=== PATIENT | female | born 1985 | race Caucasian/White ===

== ENCOUNTER 2018-05-06 09:08 | Inpatient (IN) | payer BC ==
[~2018-05-06] VITALS: Ht 160 cm; Wt 57.6 kg
--- NOTE | ~2018-05-06 | O ---
[facility] [place] [address] OPERATIVE REPORT Name: JOSE HAAS Room #: 427-P ADM IN M.R.#: [id number] Admission: 05/06/18 Attend Phys: Dm Levi MD Discharge: Date of : 89 Report #: [id number] THIS REPORT FOR: //name// CC: FAM enid Dustin Purcell Dm Levi DATE OF SERVICE: 05/06/2018 PREOPERATIVE DIAGNOSIS: Left knee surgical site infection, status post partial quad tendon repair. POSTOPERATIVE DIAGNOSIS: Left knee surgical site infection, status post partial quad tendon repair. PROCEDURE: Irrigation and debridement, left knee surgical site with removal of hardware and suture from the quad tendon repair. SURGEON: Dm Levi MD. POLICE CLERK: Marcelle Chand PA-C. ANESTHESIA: LMA. TOURNIQUET TIME: 16 minutes. ESTIMATED BLOOD LOSS: 10 mL. SPECIMENS: Cultures were sent of the superficial knee wound as well as the synovial fluid of the left knee. CONDITION UPON LEAVING THE OPERATING ROOM: Stable. INDICATIONS FOR PROCEDURE: The patient is a 32-year-old female who had a traumatic laceration to her left knee approximately 5 weeks ago. This initially underwent an irrigation, debridement and closure at an outside hospital. She presented to my office with an MRI scan showing a partial quadriceps tendon laceration and after discussion with her, we took her to the operating room about 2 weeks ago for a surgical repair. This was performed using a Healicoil suture anchor. She is about 2 weeks out from surgery and has had persistent drainage and redness around her incision and it was felt that she had an infection. After discussion with her, she elected for I and D of her left knee. DESCRIPTION OF PROCEDURE: Risks, benefits, alternatives, complications were discussed in detail with the patient including but not limited to risk of anesthesia, risk of damage to nerves, arteries, blood vessels, risk for [facility] [address] [place] [address] OPERATIVE REPORT Name: JOSE HAAS Room #: 427-P ADM IN M.R.#: [id number] Admission: 05/06/18 Attend Phys: Dm Levi MD Discharge: Date of : 89 Report #: [id number] infection, bleeding, risk for continued knee pain, need for reoperation. Informed consent was obtained from the patient. Left knee was appropriately marked in the preoperative holding area. She was brought to the operating room and placed in supine position on operating room table. LMA anesthesia was induced without complication. Tourniquet was placed on the left thigh. Left lower extremity was prepped and draped in normal sterile fashion. Timeout was performed properly identifying the patient and procedure as well as the instrumentation. All in the operating room were in agreement. Left lower extremity was elevated. Tourniquet was inflated. Tourniquet time was 16 minutes. Previous incision was then opened with a 10 blade. There was purulent drainage from this and in the deep tissues, cultures of this were taken and sent. After opening of the wound, the repair of the quadriceps tendon was assessed and noted that the repair had failed, so the sutures were removed from the quadriceps tendon and the suture anchor that was in the superior medial patella was removed. This left a deficiency of the medial quadriceps directly attached to the vastus medialis obliquus. Given that this was infected, it was decided not to repair this defect at this time in order to gain control of the wound, but not placing any braided suture or other nidus for infection in the tissues. The knee was cycled through range of motion and no synovial fluid came from the tear in the quadriceps tendon. The knee was aspirated from a separate area and the synovial fluid appeared normal to visual inspection. This was sent for cultures also. After this, the wound was thoroughly irrigated with normal saline. A deep drain was placed in the adipose layer. The skin was closed with 2-0 nylon. Soft dressing of Adaptic, 4 x 4, Webril, Rodger wrap were applied. The patient tolerated this procedure well and went to the recovery room under the care of anesthesia postoperatively. <ELECTRONICALLY SIGNED> By: Dm Levi MD 05/08/18 1306 1642 1737 Dm Levi MD /nt
[~2018-05-06 09:08] MED LIST: ADDERALL 20 MG20 M1 PO; BACTRIM DS TAB1 EACH PO; CLONAZEPAM 1 MG1 M1 PO; PROBIOTIC1 EAC1 PO; TRAMADOL 50 MG50 MG PO
[2018-05-06 14:01] VITALS: BP 130/69
[2018-05-06 15:32] LABS: HEMOGLOBIN 11.5 gm/dL (12.0-15.0); MCH 31.6 pg (26.0-34.0); MCV 90.2 fL (80.0-100.0); RBC 3.66 mil/uL (4.20-5.00); RDW 12.7 % (10.5-14.5); WBC 5.7 thou/uL (4.0-11.0)
[2018-05-06 17:31] VITALS: BP 133/84
[2018-05-06 19:28] VITALS: BP 112/8
[2018-05-07 05:01] VITALS: BP 96/44
[2018-05-07 07:30] VITALS: BP 102/65
[2018-05-07 07:39] VITALS: BP 102/65
[2018-05-07] MEDS ORDERED: PERCOCET PO (12:40)
[2018-05-07 16:59] VITALS: BP 115/57
[2018-05-07 20:30] VITALS: BP 120/74
[2018-05-08 10:11] VITALS: BP 105/70
[2018-05-08] MEDS ORDERED: NEURONTIN 300300 M1 PO ×2 (10:39→10:41)
[2018-05-08 10:51] VITALS: BP 120/74
[2018-05-08 11:15] VITALS: BP 120/74
== END 2018-05-08 13:45 | disposition home health service (06) | DRG 487 ==
LOC: PRE 09:08 → TBA 13:01 → PRE 14:13 → 4E 17:19
PROVIDERS: Orthopaedic Surgery
DX: T84.54XA Infection and inflammatory reaction due to internal left knee prosthesis, initial encounter (principal); S76.119A Strain of unspecified quadriceps muscle, fascia and tendon, initial encounter; Y83.8 Other surgical procedures as the cause of abnormal reaction of the patient, or of later complication, without mention of misadventure at the time of the procedure; X58.XXXA Exposure to other specified factors, initial encounter; Z88.8 Allergy status to other drugs, medicaments and biological substances; Y93.89 Activity, other specified; Y92.89 Other specified places as the place of occurrence of the external cause; Y99.8 Other external cause status; Z23 Encounter for immunization
CPT/HCPCS: 10783; 27000; 50010; 50101; 50386; 53078; 56525; 57092; 57103; 62110; 62900; 64042; 70005

== ENCOUNTER 2018-07-10 05:36 | Inpatient (IN) | payer BC ==
[~2018-07-10] VITALS: Ht 160 cm; Wt 58.1 kg
--- NOTE | ~2018-07-10 | O ---
[facility] [place] [address] OPERATIVE REPORT Name: JOSE HAAS Room #: 421-P [facility] IN M.R.#: [id number] Admission: 07/10/18 Attend Phys: Dm Levi MD Discharge: 07/13/18 Date of : 89 Report #: [id number] THIS REPORT FOR: //name// CC: Dustin Levi DATE OF SERVICE: 07/10/2018 PREOPERATIVE DIAGNOSIS: Left knee post-surgical abscess. POSTOPERATIVE DIAGNOSIS: Left knee post-surgical abscess. PROCEDURES: 1. Open I and D, left knee soft tissue abscess. 2. Arthroscopic I and D, left knee joint. SURGEON: Dm Levi MD. MARKETING EXECUTIVE: None. ANESTHESIA: LMA. TOURNIQUET TIME: 35 minutes. COMPLICATIONS: None. SPECIMENS: Cultures of the knee joint as well as the medial and lateral soft tissue abscess were sent. ESTIMATED BLOOD LOSS: 10 mL. SPECIMENS: None. CONDITION UPON LEAVING THE OPERATING ROOM: Stable. INDICATIONS FOR PROCEDURE: The patient is a 33-year-old female who earlier this fall, sustained a traumatic laceration to her left knee. She had undergone a debridement of this initially. She had a partial quadriceps tear and underwent a second procedure for quadriceps repair. She ended up developing an infection in this area and irrigation and debridement of the area was performed. She has gone on to heal her incision; however, in the past week or so, she developed swelling on her medial and lateral knee with increased pain and she was seen in the office. The soft tissue was aspirated and found to be purulent. MRI scan of the knee was performed shown to have a lateral as well as medial soft tissue abscess. After discussion with her, she elected for I and D of her knee. [address] [address] OPERATIVE REPORT Name: JOSE HAAS Room #: 421-P [facility] IN M.R.#: [id number] Admission: 07/10/18 Attend Phys: Dm Levi MD Discharge: 07/13/18 Date of : 89 Report #: [id number] DESCRIPTION OF PROCEDURE: Risks, benefits, alternatives, complications were discussed in detail with the patient including but not limited to risk of anesthesia, risk of damage to nerves, arteries, blood vessels, risk for continued infection, bleeding and need for reoperation. Informed consent was obtained from the patient. Left knee was appropriately marked in the preoperative holding area. IV antibiotics were held prior to surgery in order to get surgical cultures. She was brought to the operating room and placed in supine position on the operating room table. LMA anesthesia was induced without complication. Tourniquet was placed on the left thigh. Left lower extremity was prepped and draped in normal sterile fashion. Timeout was performed properly identifying the patient and procedure as well as the instrumentation. All in the operating room were in agreement. It was decided to do an arthroscopic debridement of the joint itself in order to determine if there was joint involvement with this injection. A standard anterolateral portal was established with an 11 blade through the skin. Arthroscope was introduced into the patellofemoral compartment. There was minimal fluid in the knee joint and what minimal fluid there was, this was cultured. The knee was then irrigated with normal saline and visualization of the patellofemoral, medial and lateral compartments as well as anterior cruciate ligament was performed. There appeared to be normal intraarticular knee structures without hyperemia or purulence in the joint itself. It was felt that the knee joint did not communicate with the soft tissue abscesses around the knee itself. After arthroscopic irrigation of the knee, arthroscopy was terminated and the previous scar from the laceration was excised with a 10 blade and dissection was taken down to the quadriceps. No abscess in this area was found. The interval between the adipose layer and the fascial layer was then dissected with a #15 blade and upon entering the lateral soft tissue as well as the medial soft tissue, two separate abscesses were identified. These were drained. Cultures of each were taken separately. This was then thoroughly irrigated with normal saline under pulse lavage. A deep drain was placed in this potential space and the skin was closed with 2-0 nylon. Soft dressing of Xeroform, 4 x 4's, Webril, Rodger wrap were applied. The patient tolerated this procedure well and went to recovery room under care of anesthesia postoperatively. <ELECTRONICALLY SIGNED> By: Dm Levi MD 07/15/18 1653 [id number] 1759 Dm Levi MD /nt
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
[~2018-07-10 05:36] MED LIST changes: +NEURONTIN 300300 M1 PO; +PERCOCET PO
[2018-07-10 14:48] VITALS: BP 120/70
[2018-07-10 20:05] VITALS: BP 118/64
[2018-07-11 04:59] VITALS: BP 8/52
[2018-07-11 07:05] VITALS: BP 99/61
[2018-07-11 13:25] LABS: ABSOLUTE NEUTROPHILS 5.6 thou/uL (1.4-8.2); BASOPHILS 0.9 % (0.0-2.0); EOSINOPHILS 0.3 % (0.0-3.0); HEMATOCRIT 36.1 % (37.0-47.0); HEMOGLOBIN 12.3 gm/dL (12.0-15.0); LYMPHOCYTES 34.9 % (24.0-44.0); MCH 30.9 pg (26.0-34.0); MCHC 34.1 g/dL (28.0-37.0); MCV 90.8 fL (80.0-100.0); MONOCYTES 7.1 % (1.0-8.0); PLATELET COUNT 296 thou/uL (150-400); POLYS 56.8 % (36.0-66.0); RBC 3.97 mil/uL (4.20-5.00); RDW 12.4 % (10.5-14.5); WBC 9.9 thou/uL (4.0-11.0)
[2018-07-11 13:39] LABS: ALBUMIN 3.3 g/dL (3.4-5.0); CALCIUM 8.4 mg/dL (8.5-10.1); CREATININE 0.8 mg/dL (0.6-1.0); POTASSIUM 3.8 mmol/L (3.5-5.1); TOTAL BILIRUBIN 0.2 mg/dL (<0.1-1.0); TOTAL PROTEIN 6.8 g/dL (6.4-8.2)
[2018-07-11 20:30] VITALS: BP 101/66
[2018-07-12 19:22] VITALS: BP 105/60
[2018-07-13 05:24] VITALS: BP 103/57
[2018-07-13 07:40] VITALS: BP 91/60
[2018-07-13 08:41] VITALS: BP 103/57
[2018-07-13] MEDS ORDERED: HYDROCODON-ACE1 EAC5 PO (08:41)
[2018-07-13 08:42] VITALS: BP 103/57
== END 2018-07-13 10:11 | disposition home or self-care (01) | DRG 501 ==
LOC: TBA 05:36 → OR 16:09 → EDSTATUS 16:59 → PRE 17:00 → 4E 18:47
PROVIDERS: Specialist
PROC: 05HY33Z Insertion of Infusion Device into Upper Vein, Percutaneous Approach (ICD-10-PCS; principal; 2018-07-10)
PROC: 0J9P0ZZ Drainage of Left Lower Leg Subcutaneous Tissue and Fascia, Open Approach (ICD-10-PCS; principal; 2018-07-10)
PROC: 0S9D4ZZ Drainage of Left Knee Joint, Percutaneous Endoscopic Approach (ICD-10-PCS; principal; 2018-07-10)
DX: T84.298A Other mechanical complication of internal fixation device of other bones, initial encounter (principal); L02.416 Cutaneous abscess of left lower limb; F17.210 Nicotine dependence, cigarettes, uncomplicated; S76.192A Other specified injury of left quadriceps muscle, fascia and tendon, initial encounter; Z88.8 Allergy status to other drugs, medicaments and biological substances
CPT/HCPCS: 10783; 27000; 50010; 50101; 50386; 50405; 51038; 53078; 56525; 57103; 62110; 62900; 65060; 70005

== ENCOUNTER → 2020-06-27 | Outpatient (CLI) | payer OTHER ==
[~2020-06-27] MED LIST changes: +HYDROCODON-ACE1 EAC5 PO
== END ==
LOC: ULTRA 05-29 14:26
PROVIDERS: ATTEND Obstetrics & Gynecology
DX: N83.02 Follicular cyst of left ovary (principal); Z97.5 Presence of (intrauterine) contraceptive device; Z30.9 Encounter for contraceptive management, unspecified

== ENCOUNTER 2020-08-04 07:57 | Emergency (ER) | payer OTHER ==
[~2020-08-04] VITALS: Ht 160 cm; Wt 61.2 kg
[2020-08-04 08:32] VITALS: BP 133/88
== END 2020-08-04 08:32 | disposition home or self-care (01) ==
LOC: ER 07:57
DX: U07.1 COVID-19 (principal); J06.9 Acute upper respiratory infection, unspecified; Z79.899 Other long term (current) drug therapy; Z88.8 Allergy status to other drugs, medicaments and biological substances